=== PATIENT | female | born 1965 | race Asian ===

== ENCOUNTER 2020-05-21 15:52 | Inpatient (IN) | payer SELFPAY ==
[~2020-05-21] VITALS: Ht 165.1 cm; Wt 61.7 kg
[2020-05-21 15:58] VITALS: Ht 165.1 cm; Wt 61.7 kg
[2020-05-21 17:01] LABS: CALCIUM 9.3 mg/dL (8.5-10.1); CARBON DIOXIDE 23.6 mmol/L (21-32); CHLORIDE SERUM 99 mmol/L (98-107); CREATININE SERUM 0.8 mg/dL (0.6-1.0); GFR1 > 60 mL/min; GLUCOSE SERUM 144 mg/dL (74-106); POTASSIUM SERUM 3.3 mmol/L (3.5-5.1); SODIUM SERUM 134 mmol/L (136-145)
[2020-05-21 17:04] LABS: ALBUMIN 3.5 g/dL (3.4-5.0); ALKALINE PHOSPHATASE 94 U/L (46-116); ALT/SGPT 43 U/L (14-59); AST/SGOT 28 U/L (15-37); BILIRUBIN TOTAL 1.1 mg/dL (0.20-1.00); LIPASE 60 IU/L (73-393); TOTAL PROTEIN, SERUM 8.1 g/dL (6.4-8.2)
[2020-05-21 17:25] LABS: PLATELET COUNT 237 x10^3mcL (179-408)
[2020-05-21 17:26] LABS: UA SPECIFIC GRAVITY >=1.030 (1.005-1.035); microscopic required? YES; urine erythrocyte 1+ (NEGATIVE)
[2020-05-21 17:28] LABS: BASOPHIL % 0.1 % (0.2-1.3); RED CELL DISTRIBUTION WIDTH 13.1 % (12.3-17.7)
[2020-05-21 21:20] LABS: CHOLESTEROL/HDL RATIO 3.8
[2020-05-21 21:25] LABS: T3 TOTAL 1.19 ng/mL
[2020-05-21 21:34] LABS: FREE T4 1.46 ng/dL (0.76-1.46); FREE THYROXINE INDEX 3.4 ug/dL (1.4-4.5); T4(THYROXINE) 10.4 ug/dL (4.7-13.3)
[2020-05-21 22:01] VITALS: BP 105/55
[2020-05-22] VITALS (10 sets, daily range): BP systolic 94–107; BP diastolic 42–53
[2020-05-22 06:33] LABS: BASOPHIL % 0.1 % (0.2-1.3); PLATELET COUNT 206 x10^3mcL (179-408); RED CELL DISTRIBUTION WIDTH 12.8 % (12.3-17.7)
[2020-05-22 06:40] LABS: CALCIUM 8.6 mg/dL (8.5-10.1); CARBON DIOXIDE 19.6 mmol/L (21-32); CHLORIDE SERUM 105 mmol/L (98-107); CREATININE SERUM 0.7 mg/dL (0.6-1.0); GFR1 > 60 mL/min; GLUCOSE SERUM 118 mg/dL (74-106); MAGNESIUM 1.9 mg/dL (1.8-2.4); PHOSPHOROUS 3.6 mg/dL (2.5-4.9); POTASSIUM SERUM 3.8 mmol/L (3.5-5.1); SODIUM SERUM 136 mmol/L (136-145)
[2020-05-23 05:39] VITALS: BP 118/55
[2020-05-23 06:12] LABS: BASOPHIL % 0.1 % (0.2-1.3); PLATELET COUNT 173 x10^3mcL (179-408); RED CELL DISTRIBUTION WIDTH 12.9 % (12.3-17.7)
[2020-05-23 06:25] LABS: BILIRUBIN DIRECT 0.14 mg/dL (0.0-0.2); BILIRUBIN TOTAL 0.4 mg/dL (0.20-1.00); CALCIUM 8.4 mg/dL (8.5-10.1); CARBON DIOXIDE 15.6 mmol/L (21-32); CHLORIDE SERUM 107 mmol/L (98-107); CREATININE SERUM 0.5 mg/dL (0.6-1.0); GFR1 > 60 mL/min; GLUCOSE SERUM 107 mg/dL (74-106); POTASSIUM SERUM 3.8 mmol/L (3.5-5.1); SODIUM SERUM 137 mmol/L (136-145)
[2020-05-23 07:57] VITALS: BP 100/53
[2020-05-23 10:49] VITALS: BP 100/53
== END 2020-05-23 11:20 | disposition home or self-care (01) | DRG 853 ==
LOC: ED 15:52 → MU 19:59
PROVIDERS: Emergency Medicine; Surgery; ADMIT Family Medicine; ATTEND Family Medicine
PROC: 0DTJ4ZZ Resection of Appendix, Percutaneous Endoscopic Approach (ICD-10-PCS; principal; 2020-05-22 13:30)
DX: A41.9 Sepsis, unspecified organism (principal); K35.32 Acute appendicitis with perforation, localized peritonitis, and gangrene, without abscess; E87.1 Hypo-osmolality and hyponatremia; Z20.822 Contact with and (suspected) exposure to COVID-19; D18.03 Hemangioma of intra-abdominal structures; M06.9 Rheumatoid arthritis, unspecified; E87.6 Hypokalemia; N20.0 Calculus of kidney; Z83.3 Family history of diabetes mellitus
CPT/HCPCS: 82962; 84439; G0378; J0131; J0690; J1885; J2001; J2250; J2270; J2405; J2543; J3010; J3490; J7030; Q9967